=== PATIENT | female | born 1985 | race Caucasian/White ===

== ENCOUNTER 2017-05-11 00:39 | Emergency (ER) | payer OTHER ==
[2017-05-11 01:31] VITALS: BP 111/75; PULSE 84; TEMP 99.2; BMI 21.9
[2017-05-11] MEDS ORDERED: NAPROXEN 500 MG TABLET (FP) PO ONE (01:47)
[2017-05-11] MEDS ORDERED: NAPROXEN 500 MG TABLET (FP) ONE (01:48)
--- NOTE | 2017-05-11 01:55 | PDOC ---
History of Present Illness - General History Source: Patient Exam Limitations: No Limitations <Sumanth Sutton - Last Filed: 05/11/17 01:55> - History of Present Illness Initial Comments: 05/11/17 01:58 Patient is a 31 year old female with no significant past medical history who presents to the ED with complaints of throat pain that began 2 weeks ago. Patient reports experiencing cold like symptoms that began 1 month ago stating, she initially thought it was allergies and paid it no mind. She reports experiencing bitter taste in her mouth following the ingestion of any food or liquid that began 2 weeks ago and has shown no signs of subsiding. Patient reports looking in her throat last night and noticing puss in the back of her throat, followed by checking for the presence of the pust tonight , prompting her to come into the ED for evaluation after noticing the puss was still there. As per , the entire family is sick, starting initially with their 3 year old daughter. Denies chest pain, Sob. Denies nausea, vomiting, diarrhea. Denies out of state travelling. Denies fevers, chills. Denies any other symptoms. Allergies: Seasonal. NKDA Social history: Lives with and child. No smoking. No alcohol. No illicit drugs. Surgical history: None PMD: None <Poncho Hinojosa - Last Filed: 05/11/17 01:58> - General Chief Complaint: Sore Throat Stated Complaint: THROAT PAIN Time Seen by Provider: 05/11/17 01:29 Past History - Past Medical History COPD: No - Surgical History Appendectomy: Yes - Suicide/Smoking/Psychosocial Hx Smoking History: Never smoked <Sumanth Sutton - Last Filed: 05/11/17 01:55> <Poncho Hinojosa - Last Filed: 05/11/17 01:58> - Past Medical History Allergies/Adverse Reactions: Allergies Allergy/AdvReac Type Severity Reaction Status Date / Time No Known Allergies Allergy Verified 05/11/17 01:30 Home Medications: Ambulatory Orders Naproxen 500 mg PO BID PRN #20 tablet 05/11/17 Review of Systems - Review of Systems Able to Perform ROS?: Yes Comments:: 05/11/17 01:58 GENERAL/CONSTITUTIONAL: No fever or chills. No weakness. HEAD, EYES, EARS, NOSE AND THROAT: +Throat pain. No change in vision. No ear pain or discharge. CARDIOVASCULAR: No chest pain or shortness of breath. RESPIRATORY: +coughing. No wheezing, or hemoptysis. GASTROINTESTINAL: No nausea, vomiting, diarrhea or constipation. GENITOURINARY: No dysuria, frequency, or change in urination. MUSCULOSKELETAL: No joint or muscle swelling or pain. No neck or back pain. SKIN: No rash NEUROLOGIC: No headache, vertigo, loss of consciousness, or change in strength/ sensation. ENDOCRINE: No increased thirst. No abnormal weight change. HEMATOLOGIC/LYMPHATIC: No anemia, easy bleeding, or history of blood clots. ALLERGIC/IMMUNOLOGIC: No hives or skin allergy. <Poncho Hinojosa - Last Filed: 05/11/17 01:58> *Physical Exam - Vital Signs Last Vital Signs Temp Pulse Resp BP Pulse Ox 99.2 F 84 16 111/75 100 05/11/17 01:30 05/11/17 01:30 05/11/17 01:30 05/11/17 01:30 05/11/17 01:30 <Sumanth Sutton - Last Filed: 05/11/17 01:55> - Vital Signs Last Vital Signs Temp Pulse Resp BP Pulse Ox 99.2 F 84 16 111/75 100 05/11/17 01:30 05/11/17 01:30 05/11/17 01:30 05/11/17 01:30 05/11/17 01:30 - Physical Exam Comments: 05/11/17 01:58 GENERAL: Awake, alert, and fully oriented, in no acute distress HEAD: No signs of trauma EYES: PERRLA, EOMI, sclera anicteric, conjunctiva clear ENT: +Uvula midline. +Small left salivary gland stone identified. +Oropharynx clear. No erythema. Auricles normal inspection, hearing grossly normal, nares patent, oropharynx clear without exudates. Moist mucosa NECK: Normal ROM, supple, no lymphadenopathy, JVD, or masses LUNGS: Breath sounds equal, clear to auscultation bilaterally. No wheezes, and no crackles HEART: Regular rate and rhythm, normal S1 and S2, no murmurs, rubs or gallops ABDOMEN: Soft, nontender, normoactive bowel sounds. No guarding, no rebound. No masses EXTREMITIES: Normal range of motion, no edema. No clubbing or cyanosis. No cords, erythema, or tenderness NEUROLOGICAL: Cranial nerves II through XII grossly intact. Normal speech, normal gait SKIN: Warm, Dry, normal turgor, no rashes or lesions noted. <Poncho Hinojosa - Last Filed: 05/11/17 01:58> ED Treatment Course - Medications Given in the ED: ED Medications Discontinued Medications Generic Name Dose Route Start Last Admin Trade Name Freq PRN Reason Stop Dose Admin Naproxen 500 mg 05/11/17 01:47 05/11/17 01:51 Naprosyn - PO 05/11/17 01:48 500 mg ONCE ONE Administration <Poncho Hinojosa - Last Filed: 05/11/17 01:58> Medical Decision Making - Medical Decision Making 05/11/17 01:56 A portion of this note was documented by scribe services under my direction. I have reviewed the details of the note, within reason, and agree with the documentation with the following case summary and management plan written by me. Patient treated in the ED. Nursing notes are reviewed and incorporated into the medical decision-making. Vital signs reviewed. Vital Signs Temp Pulse Resp BP Pulse Ox 99.2 F 84 16 111/75 100 05/11/17 01:30 05/11/17 01:30 05/11/17 01:30 05/11/17 01:30 05/11/17 01:30 31-year-old female with no medical history presents with sore throat for 2 weeks. Patient reports that after she eats, she was started feel sore throat. Denies fevers or chills. States she occasionally coughs but otherwise is not her main complaint. Because the symptoms were persistent and worsening she came into the ED. The oropharynx appears like she has evidence of sialolithiasis. We'll provide conservative management have the patient referred to ENT. We'll send a swab though I have low suspicion for strep pharyngitis. I discussed the physical exam findings, ancillary test results and final diagnoses with the patient. I answered all of the patient's questions. The patient was satisfied with the care received and felt comfortable with the discharge plan and treatment plan. The patient will call their primary care physician within 24 hours to arrange follow-up and will return to the Emergency Department with any new, persistant or worsening symptoms. <Sumanth Sutton - Last Filed: 05/11/17 01:55> *DC/Admit/Observation/Transfer - Discharge Dispostion Admit: No <Sumanth Sutton - Last Filed: 05/11/17 01:55> - Attestations Scribe Attestion: 05/11/17 01:58 Documentation prepared by Poncho Hinojosa, acting as medical office manager for Sumanth Sutton MD, /DO. <Poncho Hinojosa - Last Filed: 05/11/17 01:58> Diagnosis at time of Disposition: Salivary gland stone - Prescriptions Prescriptions: Naproxen 500 mg PO BID PRN #20 tablet PRN Reason: Throat Pain - Referrals Referrals: Porfirio Beck MD [Staff Physician] - - Patient Instructions Additional Instructions: You have something called: Sialolithiasis This is when your salivary glands have stones. To help expel out the stones, please suck on hard candies or lemon drops. For pain, take 500 mg naproxen every 12 hours as needed. Please call and make an appointment with an ENT specialist as they can help you with this. Drink plenty of fluids and rest.
--- NOTE | 2017-05-12 15:03 | PDOC ---
Patient Follow-up (Call Back) - Post ED Follow - Up Condition at time of discharge: Stable Disposition at time of original discharge: HOME Reason for Call Back: Abnwl. Microbiology (Micro grew Beta hem streptococcus group G, not on abx. Left message for pt to call back.)
== END 2017-05-11 02:13 | disposition home or self-care (01) ==
LOC: JER 00:39
DX: K11.5 Sialolithiasis (principal)
CPT/HCPCS: 87070; 87077; 87430; 99281-25